=== PATIENT | male | born 1965 | race Caucasian/White ===

== ENCOUNTER → 2017-03-10 | Outpatient (CLI) | payer BC ==
[~2017-03-10] MED LIST: ASPEC81 PO; LRT5 PO
[2017-03-10 12:51] LABS: BASO % 0.4 %; BASO ABS # 0.02 K/uL (0-0.2); COMPLETE YES; EOS % 7.2 %; IG% 0.2 %; LYMPH % 39.7 %; LYMPH ABS # 2.15 K/uL (1.2-3.4); MEAN CELL VOLUME 84.8 fL (80-100); MEAN CORPUSCULAR HEMOGLOBIN 29.1 pg (25-34); MEAN CORPUSCULAR HGB CONC 34.3 g/dl (32-36); MEAN PLATELET VOLUME 10.5 fL (7.4-10.4); MONO % 7.8 %; NEUT % 44.7 %; PLATELET COUNT 203 K/uL (130-400); RED BLOOD COUNT 5.19 M/uL (4.7-6.1); WHITE BLOOD COUNT 5.41 K/uL (4.8-10.8)
[2017-03-10 15:05] LABS: ALT/SGPT 43 U/L (12-78); AST/SGOT 25 U/L (15-37)
== END | disposition home or self-care (01) ==
LOC: C.LABSPEC 11:59
PROVIDERS: ATTEND Internal Medicine
DX: E61.1 Iron deficiency (principal); E78.5 Hyperlipidemia, unspecified

== ENCOUNTER → 2017-09-08 | Outpatient (CLI) | payer BC ==
[2017-09-08 12:52] LABS: HEMATOCRIT 45.9 % (42-52); MEAN CELL VOLUME 84.1 fL (80-100); MEAN CORPUSCULAR HEMOGLOBIN 27.8 pg (25-34); MEAN CORPUSCULAR HGB CONC 33.1 g/dl (32-36); MEAN PLATELET VOLUME 10.3 fL (7.4-10.4); PLATELET COUNT 206 K/uL (130-400); RED BLOOD COUNT 5.46 M/uL (4.7-6.1); WHITE BLOOD COUNT 5.44 K/uL (4.8-10.8)
[2017-09-08 13:24] LABS: ESTIMATED AVERAGE GLUCOSE 126 mg/dl; HA1C FLAG Normal (Normal)
[2017-09-08 13:25] LABS: BLOOD UREA NITROGEN 9 mg/dl (7-18); BUN/CREATININE RATIO 9.5 (10-20); CALCIUM 9.1 mg/dl (8.5-10.1); CARBON DIOXIDE 26 mmol/L (21-32); CHLORIDE 106 mmol/L (98-107); CHOLESTEROL 136 mg/dl (0-200); CREATININE 0.97 mg/dl (0.60-1.40); GLUCOSE 96 mg/dl (70-99); SODIUM 140 mmol/L (136-145); TRIGLYCERIDES 94 mg/dl (0-150); VERY LOW DENSITY LIPOPROT CALC 19 mg/dl
[2017-09-08 13:28] LABS: CHOLESTEROL/HDL RATIO 2.9; HDL CHOLESTEROL 47 mg/dl
== END | disposition home or self-care (01) ==
LOC: C.LABSPEC 12:31
PROVIDERS: ATTEND Internal Medicine
DX: D50.9 Iron deficiency anemia, unspecified (principal); R73.9 Hyperglycemia, unspecified; E78.5 Hyperlipidemia, unspecified; Z00.00 Encounter for general adult medical examination without abnormal findings

== ENCOUNTER → 2018-03-17 | Outpatient (CLI) | payer BC ==
[2018-03-17 13:55] LABS: HEMOGLOBIN A1C 6.1 % (4.5-5.6)
== END | disposition home or self-care (01) ==
LOC: C.LABSPEC 13:03
PROVIDERS: ATTEND Internal Medicine
DX: R73.9 Hyperglycemia, unspecified (principal)